=== PATIENT | female | born 2005 | race Caucasian/White ===

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

== ENCOUNTER → 2025-03-09 | Outpatient (CLI) | payer OTHER ==
[~2025-03-09] MED LIST: BENZ0.5T2 PO; NORE0.353 PO; OLAN20TA53 PO; TOPA1TAB PO
[2025-03-09 12:24] LABS: BASO # 0.1 10^3/uL (0.0-0.2); BASO % 1.1 % (0.0-1.0); EOS # 0.2 10^3/uL (0.0-0.5); EOS % 4.4 % (0.0-3.0); LYMPH # 1.7 10^3/uL (1.5-5.0); LYMPH % 30.7 % (24.0-44.0); MONO # 0.5 10^3/uL (0.0-0.8); MONO % 8.3 % (2.0-8.0); NEUTROPHILS # 3.0 10^3/uL (1.5-8.5); NEUTROPHILS % 55.5 % (36.0-66.0); PLATELET COUNT, AUTOMATED 337 10^3/uL (150-450)
[2025-03-09 12:31] LABS: ERYTHROCYTE SEDIMENTATION RATE 27 mm/hr (0-20)
[2025-03-09 13:02] LABS: RHEUMATOID FACTOR QUANT < 3.5 IU/ML (<14)
[2025-03-09 13:03] LABS: C REACTIVE PROTEIN QUANTITATIV 0.66 MG/DL (<1.0)
== END ==
LOC: M PLALAB 08:42
PROVIDERS: ATTEND Physician Assistant
DX: R10.2 Pelvic and perineal pain (principal)